=== PATIENT | female | born 1950 | race Caucasian/White ===

== ENCOUNTER 2018-12-02 08:03 | Day surgery (SDC) | payer MEDICARE ==
[~2018-12-02 08:03] MED LIST: LACTATED RINGERS 1,000 ML IV SCH; LIDOCAINE 1% 20 ML VIAL (10MG/ML) FOR IV START INTRADERMA PRN
[2018-12-02 08:32] VITALS: TEMP 97.8
[2018-12-02] MEDS ORDERED: PROPOFOL 10 MG/ML 20 ML VIAL IV ONE (09:21)
--- NOTE | 2018-12-02 09:24 | P.GSHP ---
History of Present Illness H&P Date: 12/02/18 Chief Complaint: Screening colonoscopy This is a 68-year-old female who presents today for screening colonoscopy. Patient denies a significant GI complaints. Past Medical History Past Medical History: Cancer, COPD, Osteoarthritis (OA), Thyroid Disorder Additional Past Medical History / Comment(s): BLADDER CANCER, cellulitis jay lower legs 3 months ago History of Any Multi-Drug Resistant Organisms: None Reported Past Surgical History: Cholecystectomy, Hysterectomy, Orthopedic Surgery Additional Past Surgical History / Comment(s): RIGHT SHOULDER, RIGHT FOREARM SURGERY, RIGHT CARPAL TUNNEL, RIGHT TOTAL HIP, LEFT TOTAL HIP, BLADDER BIOSPY Past Anesthesia/Blood Transfusion Reactions: No Reported Reaction Past Psychological History: Depression Smoking Status: Current every day smoker Past Alcohol Use History: Rare Additional Past Alcohol Use History / Comment(s): STARTED SMOKING AT AGE 12 SMOKES 1/2PPD Past Drug Use History: None Reported - Past Family History Sister(s) Family Medical History: Cancer Medications and Allergies Home Medications Medication Instructions Recorded Confirmed Type DULoxetine HCL [Cymbalta] 60 mg PO DAILY 11/28/18 11/28/18 History Estrogens, Conjugated [Premarin] 0.625 mg PO DAILY 11/28/18 11/28/18 History Lansoprazole [Prevacid] 30 mg PO DAILY 11/28/18 11/28/18 History Levothyroxine Sodium [Synthroid] 137 mcg PO DAILY 11/28/18 11/28/18 History Oxybutynin Chloride [Ditropan] 5 mg PO TID 11/28/18 11/28/18 History Venlafaxine HCl [Effexor XR] 75 mg PO BID 11/28/18 11/28/18 History Symbicort,Unknow Dose 2 puff INHALATION BID 12/02/18 History Allergies Allergy/AdvReac Type Severity Reaction Status Date / Time Iodinated Contrast- Oral and Allergy Rash/Hives Verified 11/28/18 15:55 IV Dye Penicillins Allergy Rash/Hives Verified 11/28/18 15:55 Surgical - Exam Vital Signs Temp Pulse Resp BP Pulse Ox 97.8 F 68 16 172/77 92 L 12/02/18 08:30 12/02/18 08:30 12/02/18 08:30 12/02/18 08:30 12/02/18 08:30 - General well developed, well nourished, no distress - Eyes PERRL - ENT normal pinna - Neck no masses - Respiratory normal expansion - Cardiovascular Rhythm: regular - Abdomen Abdomen: soft, non tender Assessment and Plan Assessment: We'll perform screening colonoscopy
--- NOTE | 2018-12-02 09:42 | P.OP ---
Date of Procedure: 12/02/18 Preoperative Diagnosis: Screening colonoscopy Postoperative Diagnosis: Rectal polyp External hemorrhoids Procedure(s) Performed: Colonoscopy Anesthesia: MAC Surgeon: Nils Mistry Pathology: other (Rectal polyp) Condition: stable Disposition: PACU Description of Procedure: The patient's placed on the endoscopy table in the lateral position. She received IV sedation. Digital rectal exam was performed which revealed external hemorrhoids. Flexible colonoscope was then placed patient anus passed throughout the entire colon. The ileocecal valve was visualized. The cecum, ascending and transverse colon appeared normal. The descending and sigmoid colon appeared normal. The scope was then brought back the rectum and there appeared to be a small polyp. This was removed with the cold forcep. The scope was withdrawn for patient.
[2018-12-02 10:13] VITALS: BP 165/56; PULSE 78; RESP 18
== END 2018-12-02 10:17 | disposition home or self-care (01) ==
LOC: ORWHC2ENDO 08:03
PROVIDERS: ATTEND Surgery
DX: Z12.11 Encounter for screening for malignant neoplasm of colon (principal); K62.1 Rectal polyp; K64.4 Residual hemorrhoidal skin tags; J44.9 Chronic obstructive pulmonary disease, unspecified; M19.90 Unspecified osteoarthritis, unspecified site; E07.9 Disorder of thyroid, unspecified; F17.210 Nicotine dependence, cigarettes, uncomplicated; F32.9 Major depressive disorder, single episode, unspecified; Z85.51 Personal history of malignant neoplasm of bladder; Z88.0 Allergy status to penicillin; Z79.890 Hormone replacement therapy; Z79.899 Other long term (current) drug therapy; Z91.041 Radiographic dye allergy status; Z96.643 Presence of artificial hip joint, bilateral
CPT/HCPCS: 88305; 45380; J2704

== ENCOUNTER → 2018-12-30 | Outpatient (CLI) | payer MEDICARE ==
--- NOTE | 2019-01-01 09:31 | P.ARTDOP ---
Arterial Doppler Upper extremity arterial Doppler Date of study: 12/30/2018 Reason for study: Paresthesias Doppler waveforms are multiphasic bilaterally throughout. There are no significant right to left or segmental pressure gradients. Impression: Grossly normal upper extremity arterial Doppler. Symptoms unlikely to be vascular.
== END | disposition home or self-care (01) ==
LOC: RADUSWWP 14:11
PROVIDERS: ATTEND Family Medicine
DX: R20.2 Paresthesia of skin (principal)
CPT/HCPCS: 93923

== ENCOUNTER 2022-11-25 21:01 | Inpatient (IN) | payer MEDICARE ==
[2022-11-26] MEDS ORDERED: HEPARIN SODIUM 1,000 UN/ML (10ML VL) IV PRN (04:39)
[2022-11-26] MEDS ORDERED: HEPARIN SODIUM 1,000 UN/ML (10ML VL) IV ONE (04:39)
[2022-11-26] MEDS: HEPARIN SOD,PORK IN 0.45% NACL 25,000 UNIT in 0.45% NACL 1 250ML.BAG IV SCH ×2 (05:23→18:09)
[2022-11-26] MEDS ORDERED: IBUPROFEN 200 MG TAB PO PRN (06:00)
[2022-11-26 06:06] LABS: Basophils % (A) 0 %; Eosinophils % (A) 0 %; HCT 40.3 % (34.0-46.0); HGB 12.6 gm/dL (11.4-16.0); Lymphocytes # (A) 0.6 k/uL (1.0-4.8); Lymphocytes % (A) 5 %; MCH 29.6 pg (25.0-35.0); MCHC 31.1 g/dL (31.0-37.0); MCV 95.2 fL (80.0-100.0); Mean Platelet Volume 9.2; Monocytes # (A) 0.5 k/uL (0-1.0); Monocytes % (A) 5 %; Neutrophils # (A) 9.4 k/uL (1.3-7.7); Neutrophils % (A) 89 %; Platelet Count 238 k/uL (150-450); RBC 4.24 m/uL (3.80-5.40); RDW 13.4 % (11.5-15.5); WBC 10.6 k/uL (3.8-10.6)
[2022-11-26 06:12] LABS: Partial Thromboplastin Time 25.8 sec (22.0-30.0); Prothrombin Time 10.4 sec (9.0-12.0)
[2022-11-26] MEDS: LEVOTHYROXINE 137 MCG TAB PO SCH (07:40)
[2022-11-26] MEDS: PANTOPRAZOLE 40 MG TABLET PO SCH (08:07)
[2022-11-26] MEDS: ESTROGENS, CONJUGATED 0.625 MG TAB PO SCH (08:07)
[2022-11-26] MEDS: OXYBUTYNIN CHLORIDE 5 MG TAB PO SCH ×3 (08:07→20:49)
[2022-11-26] MEDS: lisinopriL 10 MG TAB PO SCH (08:07)
[2022-11-26] MEDS ORDERED: FORMOTEROL INHALATION SCH (09:00)
[2022-11-26] MEDS ORDERED: BUDESONIDE INHALATION SCH (09:00)
[2022-11-26] MEDS ORDERED: NON FORMULARY DRUG (Citalopram Hydrobromide [Citalopram Hbr] 40 MG Tablet) PO SCH (09:00)
[2022-11-26] MEDS: CITALOPRAM HYDROBROMIDE 20 MG TAB PO SCH (09:59)
--- NOTE | 2022-11-26 11:31 | P.GSCN ---
History of Present Illness Consult date: 11/26/22 History of present illness: The patient is a 72-year-old female who was transferred in from an outside hospital for increasing shortness of breath. She has found to have a pulmonary embolism worse on the right and on the left at the outside hospital. They di dn't have means of echocardiogram or intervention therefore she was transferred here. She states that she's had significant immobility recently, she initially had back surgery on her neck 4-5 years ago, subsequently she had wounds and required antibiotic therapy the IV. She recently underwent a muscle flap transfer on the neck to cover the bone and hardware about 8-9 weeks ago. She states during that time she was relatively immobile and just recently was cleared to go back to activity. She was doing laundry and utilizing a detergent usually makes her breathing somewhat worsened as she artery has evidence of COPD. She tried utilizing an inhaler that usually resolve the issue however this did not help and she found she was hypoxic with an elevated heart rate at home therefore she presented to the outside ER. She initially was treated as a COPD exacerbation and subsequent CT angiogram of the chest was performed again reportedly showing evidence of pulmonary emboli. At this point here she is feeling better. She feels her breathing is improved. She denies any fevers, chills, nausea or vomiting. She denies any significant swelling in her legs that is unchanged from previous. Past Medical History Past Medical History: Cancer, COPD, Osteoarthritis (OA), Thyroid Disorder Additional Past Medical History / Comment(s): BLADDER CANCER, cellulitis jay lower legs History of Any Multi-Drug Resistant Organisms: None Reported Past Surgical History: Cholecystectomy, Hysterectomy, Orthopedic Surgery Additional Past Surgical History / Comment(s): RIGHT SHOULDER, RIGHT FOREARM SURGERY, RIGHT CARPAL TUNNEL, RIGHT TOTAL HIP, LEFT TOTAL HIP, BLADDER BIOSPY, Cervical spine surgery 2018 Past Anesthesia/Blood Transfusion Reactions: Previous Problems w/ Anesthesia Additional Past Anesthesia/Blood Transfusion Reaction / Comm: States last three surgeries with anesthesia, O2 drops once in recovery and has to stay in hospital for days. Smoking Status: Former smoker - Past Family History Sister(s) Family Medical History: Cancer Medications and Allergies Home Medications Medication Instructions Recorded Confirmed Type Estrogens, Conjugated [Premarin] 0.625 mg PO DAILY 11/28/18 11/26/22 History Lansoprazole [Prevacid] 30 mg PO DAILY 11/28/18 11/26/22 History Levothyroxine Sodium [Synthroid] 137 mcg PO DAILY 11/28/18 11/26/22 History Budesonide/Formoterol Fumarate 2 puff INHALATION RT-BID 11/26/22 11/26/22 History [Symbicort 160-4.5 Mcg Inhaler] Citalopram Hydrobromide 40 mg PO DAILY 11/26/22 11/26/22 History [Citalopram HBr] Ibuprofen [Motrin] 600 mg PO TID PRN 11/26/22 11/26/22 History Ipratropium/Albuter 20-100Mcg 1 puff INHALATION RT-QID PRN 11/26/22 11/26/22 History [Combivent Respimat 20-100Mcg Inhaler] Oxybutynin Xl [Ditropan XL] 5 mg PO TID 11/26/22 11/26/22 History lisinopriL [Zestril] 10 mg PO DAILY 11/26/22 11/26/22 History Allergies Allergy/AdvReac Type Severity Reaction Status Date / Time Iodinated Contrast Media Allergy Rash on Verified 11/26/22 11:01 [Iodinated Contrast- Oral stomach and IV Dye] Penicillins Allergy Rash/Hives Verified 11/26/22 11:01 Surgical - Exam Vital Signs Temp Pulse Resp BP Pulse Ox 97.8 F 63 20 187/86 94 L 11/26/22 03:30 11/26/22 03:30 11/26/22 03:30 11/26/22 03:30 11/26/22 03:30 Patient is a pleasant female in mild respiratory distress wearing oxygen. Heart appears mildly tachycardic otherwise regular. Lungs are diminished but clear. Abdomen is soft. Obese, nontender nondistended. Extremities with mild edema. Normal range of motion. Results Labs at this hospital are reviewed. Reports from outside hospital are reviewed. We will try to upload computed tomography scan to our PAC system. - Labs 11/26/22 05:12 Abnormal Lab Results - Last 24 Hours (Table) 11/26/22 Range/Units 05:12 Neutrophils # 9.4 H (1.3-7.7) k/uL Lymphocytes # 0.6 L (1.0-4.8) k/uL Assessment and Plan Assessment: Reported pulmonary emboli with evidence of right heart strain on CT Recent immobility COPD Lower extremity swelling Plan: We will try to obtain the visualization of the computed tomography scan. Patient is to be getting an echocardiogram to fully evaluate for right heart strain. She does have evidence of pulmonary disease but no reported history of pulmonary hypertension on previous echocardiograms. She currently is stable on 2-3 L of oxygen. We discussed the indications of submassive PE with right heart strain and outcomes versus heparinization alone. Risks and benefits of thrombolytic therapy were discussed. We discussed that we will wait to see what the echocardiogram shows that there is intact evidence of right heart strain will proceed with TPA thrombolysis. The patient seemingly understands the plan and is willing to proceed. We'll also check a venous duplex bilaterally.
[2022-11-26] MEDS: ACETAMINOPHEN TAB 325 MG TAB PO PRN ×2 (11:40→16:42)
[2022-11-26] MEDS: IPRATROPIUM-ALBUTEROL 3 ML NEB INHALATION PRN ×2 (16:16→20:08)
--- NOTE | 2022-11-26 17:03 | US ---
EXAMINATION TYPE: US venous doppler duplex LE BI DATE OF EXAM: 11/26/2022 2:18 PM COMPARISON: NONE CLINICAL HISTORY: PE. Pe SIDE PERFORMED: Bilateral TECHNIQUE: The lower extremity deep venous system is examined utilizing real time linear array sonog salbador with graded compression, doppler sonography and color-flow sonography. VESSELS IMAGED: Common Femoral Vein Deep Femoral Vein Greater Saphenous Vein * Femoral Vein Popliteal Vein Small Saphenous Vein * Proximal Calf Veins (* superficial vessels) Right Leg: Positive for DVT Popliteal Vein. Left Leg: Positive for DVT Popliteal Vein. IMPRESSION: No evidence of deep vein thrombosis in both legs.
[2022-11-26] MEDS: SYMBICORT 160-4.5 MCG INHALER INHALATION SCH (20:08)
--- NOTE | 2022-11-26 23:02 | P.HPIM ---
History of Present Illness H&P Date: 11/26/22 Chief Complaint: Shortness of breath Patient is a 72-year-old female with known history of COPD, osteoarthritis, history of bladder cancer, prior history of smoking and recent history of neck skin flap surgery about 9 weeks ago initially presented to [facility] with complaints of cough and shortness of breath initially started on Sunday. Following night she was still having shortness of breath and getting worse. She measured her pulse ox and found to be 60% with heart rate of 105. Patient went to ER. She was found to have elevated D-dimer level and CT angiogram of the chest showed large main right pulmonary artery thromboembolism and left upper lobe subsegmental pulmonary embolism. Patient was transferred to [facility] for vascular surgery evaluation. Patient currently denies any complaints of chest pain. On oxygen at 2 L via nasal cannula. No fever no chills. No worsening cough or sputum production. Patient also noticed some increasing leg swelling but denies any pain. Patient has been sitting in the chair most of the time since surgery. Laboratory showed WBC 10.6 hemoglobin 12.6 and platelets 238 Patient is being current on heparin drip Review of Systems Constitutional: Patient denies any fever or chills . No generalized weakness or weight loss. Abdomen: Patient denied nausea vomiting and diarrhea and abdominal pain. Cardiovascular: Patient denies any chest pain or short of breath no palpitations. Respiratory: patient denied any cough is from production. Complaining of shortness of breath Neurologic: Patient denied any numbness or tingling headache. Musculoskeletal: Patient denies any complaints of joint swelling or deformity. Skin: Negative Psychiatric: Negative Endocrine: No heat or cold intolerance. No recent weight gain. Genitourinary: No dysuria or hematuria. All other 14 point ROS negative except the above Past Medical History Past Medical History: Cancer, COPD, Osteoarthritis (OA), Thyroid Disorder Additional Past Medical History / Comment(s): BLADDER CANCER, cellulitis jay lower legs History of Any Multi-Drug Resistant Organisms: None Reported Past Surgical History: Cholecystectomy, Hysterectomy, Orthopedic Surgery Additional Past Surgical History / Comment(s): RIGHT SHOULDER, RIGHT FOREARM SURGERY, RIGHT CARPAL TUNNEL, RIGHT TOTAL HIP, LEFT TOTAL HIP, BLADDER BIOSPY, Cervical spine surgery 2018 Past Anesthesia/Blood Transfusion Reactions: Previous Problems w/ Anesthesia Additional Past Anesthesia/Blood Transfusion Reaction / Comment(s): States last three surgeries with anesthesia, O2 drops once in recovery and has to stay in hospital for days. Smoking Status: Former smoker - Past Family History Sister(s) Family Medical History: Cancer Medications and Allergies Home Medications Medication Instructions Recorded Confirmed Type Estrogens, Conjugated [Premarin] 0.625 mg PO DAILY 11/28/18 11/26/22 History Lansoprazole [Prevacid] 30 mg PO DAILY 11/28/18 11/26/22 History Levothyroxine Sodium [Synthroid] 137 mcg PO DAILY 11/28/18 11/26/22 History Budesonide/Formoterol Fumarate 2 puff INHALATION RT-BID 11/26/22 11/26/22 History [Symbicort 160-4.5 Mcg Inhaler] Citalopram Hydrobromide 40 mg PO DAILY 11/26/22 11/26/22 History [Citalopram HBr] Ibuprofen [Motrin] 600 mg PO TID PRN 11/26/22 11/26/22 History Ipratropium/Albuter 20-100Mcg 1 puff INHALATION RT-QID PRN 11/26/22 11/26/22 History [Combivent Respimat 20-100Mcg Inhaler] Oxybutynin Xl [Ditropan XL] 5 mg PO TID 11/26/22 11/26/22 History lisinopriL [Zestril] 10 mg PO DAILY 11/26/22 11/26/22 History Allergies Allergy/AdvReac Type Severity Reaction Status Date / Time Iodinated Contrast Media Allergy Rash on Verified 11/26/22 11:01 [Iodinated Contrast- Oral stomach and IV Dye] Penicillins Allergy Rash/Hives Verified 11/26/22 11:01 Physical Exam Vitals: Vital Signs Temp Pulse Resp BP Pulse Ox 11/26/22 13:00 18 11/26/22 11:20 97.7 F 61 18 180/84 95 11/26/22 08:01 97.8 F 62 18 171/82 94 L 11/26/22 04:00 97.9 F 67 18 192/85 94 L 11/26/22 03:30 97.8 F 63 20 187/86 94 L Intake and Output 11/26/22 11/26/22 11/26/22 06:59 14:59 22:59 Intake Total 19.727 664.99 0 Balance 19.727 664.99 0 Intake: IV 20 Invasive Line 1 20 Intake, IV Titration 19.727 138.99 0 Amount Heparin Sod,Pork in 0.45% 19.727 138.99 0 NaCl 25,000 unit In 0.45 % NaCl 1 250ml.bag @ 18 UNITS/KG/HR 17.406 mls/hr IV .[id number] JB Rx#: [id number] Oral 506 Other: Voiding Method Toilet # Voids 2 1 Weight 96.7 kg PHYSICAL EXAMINATION: Patient is lying in the bed comfortably, no acute distress, awake alert and oriented.. HEENT: Normocephalic. Neck is supple. Pupils reactive. Nostrils clear. Oral cavity is moist. Neck reveals no JVD, carotid bruits, or thyromegaly. CHEST EXAMINATION: Trachea is central. Symmetrical expansion. Lung oliveros clear to auscultation and percussion. CARDIAC: Normal S1, S2 with no gallops. No murmurs ABDOMEN: Soft. Bowel sounds normal. No organomegaly. No abdominal bruits. Extremities: reveal no edema. No clubbing or cyanosis Neurologically awake, alert, oriented x3 with well-coordinated movements. No focal deficits noted Skin: No rash or skin lesions. Psychiatric: Coperative. Nonsuicidal Musculoskeletal: No joint swelling or deformity. Normal range of motion. Results CBC & Chem 7: 11/27/22 03:19 11/27/22 03:19 Labs: Abnormal Lab Results - Last 24 Hours (Table) 11/26/22 11/26/22 Range/Units 05:12 11:48 Neutrophils # 9.4 H (1.3-7.7) k/uL Lymphocytes # 0.6 L (1.0-4.8) k/uL APTT >200.0 H* (22.0-30.0) sec Thrombosis Risk Factor Assmnt - DVT/VTE Prophylaxis DVT/VTE Prophylaxis: Pharmacologic Prophylaxis ordered - Choose All That Apply Any of the Below Risk Factors Present?: Yes Each Factor Represents 1 point: Abnormal pulmonary function (COPD), Obesity (BMI >25) Other Risk Factors: Yes Each Risk Factor Represents 3 Points: History of DVT/PE Other congenital or acquired thrombophilia - If yes, enter type in comment: No Thrombosis Risk Factor Assessment Total Risk Factor Score: 5 Thrombosis Risk Factor Assessment Level: High Risk Assessment and Plan Assessment: Acute large right main pulmonary artery embolus and left upper subsegmental PE. Likely provoked due to recent immobilization after surgery. Acute hypoxic respiratory failure and tachycardia secondary to above. History of neck muscle flap surgery about 9 weeks ago. COPD Osteoarthritis Hypothyroidism History of bladder cancer Prior history of smoking Plan: Patient will be continued on heparin drip. Continue telemetry monitoring. 2D echocardiogram was ordered for any possible right ventricular strain. Vascular surgery is on board. Considering thrombolytic therapy if there is any evidence of right ventricular strain. Bilateral artery duplex scan was ordered. Continue with oxygen supplementation and duo nebs inhalation. Follow-up closely. Discussed with patient and her at bedside in detail. Prognosis is guarded at this time. Time with Patient: Greater than 30
[2022-11-27 03:43] LABS: Basophils % (A) 0 %; Eosinophils # (A) 0.2 k/uL (0-0.7); Eosinophils % (A) 3 %; HCT 41.3 % (34.0-46.0); HGB 12.7 gm/dL (11.4-16.0); Lymphocytes % (A) 27 %; MCH 29.6 pg (25.0-35.0); MCHC 30.8 g/dL (31.0-37.0); MCV 96.1 fL (80.0-100.0); Mean Platelet Volume 9.3; Monocytes # (A) 0.7 k/uL (0-1.0); Monocytes % (A) 9 %; Neutrophils # (A) 4.5 k/uL (1.3-7.7); Neutrophils % (A) 59 %; Platelet Count 211 k/uL (150-450); RDW 13.7 % (11.5-15.5); WBC 7.6 k/uL (3.8-10.6)
[2022-11-27 04:00] LABS: Calcium 8.7 mg/dL (8.4-10.2); Potassium 4.8 mmol/L (3.5-5.1)
[2022-11-27] MEDS: LEVOTHYROXINE 137 MCG TAB PO SCH (06:10)
[2022-11-27] MEDS: SYMBICORT 160-4.5 MCG INHALER INHALATION SCH ×2 (07:07→19:24)
[2022-11-27] MEDS: PANTOPRAZOLE 40 MG TABLET PO SCH (08:34)
[2022-11-27] MEDS: OXYBUTYNIN CHLORIDE 5 MG TAB PO SCH ×3 (08:34→20:47)
[2022-11-27] MEDS: ACETAMINOPHEN TAB 325 MG TAB PO PRN (08:34)
[2022-11-27] MEDS: CITALOPRAM HYDROBROMIDE 20 MG TAB PO SCH (08:34)
[2022-11-27] MEDS: lisinopriL 10 MG TAB PO SCH (08:35)
[2022-11-27] MEDS: ESTROGENS, CONJUGATED 0.625 MG TAB PO SCH (08:35)
[2022-11-27] MEDS: HEPARIN SOD,PORK IN 0.45% NACL 25,000 UNIT in 0.45% NACL 1 250ML.BAG IV SCH (08:38)
--- NOTE | 2022-11-27 10:11 | P.PN ---
Subjective Progress Note Date: 11/27/22 Principal diagnosis: Bilateral pulmonary emboli Patient was seen and examined today as a follow-up. Lying down on the couch discomfort. She states she is doing much better. She is not requiring any oxygen. She's not feeling short of breath, denies any chest pain. She did have a venous duplex of the lower extremities that reported bilateral lower extremity popliteal DVTs. Patient is awaiting echocardiogram. Echocardiogram was performed there is no evidence of any right heart strain. Objective - Vital Signs Vital signs: Vital Signs Temp 97.5 F L 11/27/22 08:26 Pulse 58 L 11/27/22 08:26 Resp 18 11/27/22 08:26 BP 106/61 11/27/22 08:26 Pulse Ox 91 L 11/27/22 08:26 FiO2 21 11/27/22 07:08 Intake & Output 11/26/22 11/27/22 11/27/22 18:59 06:59 18:59 Intake Total 825.635 681.810 474.055 Balance 825.635 681.810 474.055 Intake: IV 20 Invasive Line 1 20 Intake, IV Titration 181.635 141.810 54.055 Amount Heparin Sod,Pork in 0.45% 181.635 141.810 54.055 NaCl 25,000 unit In 0.45 % NaCl 1 250ml.bag @ 18 UNITS/KG/HR 17.406 mls/hr IV .[id number] JB Rx#: [id number] Oral [phone] Other: Voiding Method Toilet Toilet Toilet # Voids 1 2 - Exam General appearance: The patient is alert, oriented, appears in no acute distress. HET: Head is normocephalic and atraumatic. Neck: Supple. Heart: Regular. Lungs: Equal expansion, normal respiratory effort, bilateral wheezes. Abdomen: Soft, nontender, nondistended. Extremities: Normal skin color and turgor. Bilateral lower extremity swelling. Neurological: No focal deficits. - Labs CBC & Chem 7: 11/27/22 03:19 11/27/22 03:19 Labs: Abnormal Lab Results - Last 24 Hours (Table) 11/26/22 11/26/22 11/27/22 Range/Units 11:48 20:32 03:19 MCHC 30.8 L (31.0-37.0) g/dL APTT >200.0 H* 96.7 H (22.0-30.0) sec Carbon Dioxide (22-30) mmol/L BUN (7-17) mg/dL Creatinine (0.52-1.04) mg/dL Glucose (74-99) mg/dL 11/27/22 11/27/22 Range/Units 03:19 03:19 MCHC (31.0-37.0) g/dL APTT 83.7 H (22.0-30.0) sec Carbon Dioxide 32 H (22-30) mmol/L BUN 44 H (7-17) mg/dL Creatinine 1.07 H (0.52-1.04) mg/dL Glucose 102 H (74-99) mg/dL Assessment and Plan Assessment: 1. Bilateral pulmonary emboli without evidence of right heart strain 2. Bilateral lower extremity DVTs 3. Recent immobility 4. COPD 5. Lower extremity swelling Plan: 1. Echocardiogram reviewed, no evidence of right heart strain 2. Patient may transition to oral anticoagulation of her choice 3. No indication for any vascular surgical intervention Thank you for this consultation. We will sign off at this time. The impression and plan of care has been dictated as directed. Dr. Mcpherson I performed a history and examination of this patient, discussed the same with the dictator. I agree with the dictator's note ,documented as a scribe. Any additional findings or plans will be noted.
[2022-11-27] MEDS: IPRATROPIUM-ALBUTEROL 3 ML NEB INHALATION PRN ×3 (10:55→19:24)
--- NOTE | 2022-11-27 11:27 | CA ---
Transthoracic Echo Report Name: Anne Kimball Age: 72 Gender: F : 1950 Exam Date: 11/27/2022 10:05 Exam Location: [facility] Ht (in): 62 Wt (lb): 213 Ordering Physician: Andres Meyers MD Attending/Referring Phys: Hoister NS Procedure CPT: Indications: Multiple PEs Cardiac Hx: Technical Quality: Fair Contrast 1: Total Dose (mL): Contrast 2: Total Dose (mL): MEASUREMENTS (Male / Female) Normal Values 2D ECHO LV Diastolic Diameter PLAX 4.3 cm 4.2 - 5.9 / 3.9 - 5.3 cm LV Systolic Diameter PLAX 3.1 cm IVS Diastolic Thickness 1.6 cm 0.6 - 1.0 / 0.6 - 0.9 cm LVPW Diastolic Thickness 1.6 cm 0.6 - 1.0 / 0.6 - 0.9 cm LV Relative Wall Thickness 0.8 LV Diastolic Volume MOD 4C 57.8 cm??? LV Systolic Volume MOD 4C 26.4 cm??? LV Ejection Fraction MOD 4C 54.3 % LV Cardiac Index MOD 4C 1161.3 cm???/min???m??? LV Diastolic Length 4C 6.5 cm LV Systolic Length 4C 5.4 cm M-MODE Aortic Root Diameter MM 2.6 cm LA Systolic Diameter MM 5.0 cm LA Ao Ratio MM 1.9 AV Cusp Separation MM 1.9 cm DOPPLER AV Peak Velocity 143.6 cm/s AV Peak Gradient 8.2 mmHg LVOT Peak Velocity 111.2 cm/s LVOT Peak Gradient 4.9 mmHg MV Area PHT 4.2 cm??? MR Peak Velocity 536.9 cm/s MR Peak Gradient 115.3 mmHg Mitral E Point Velocity 62.6 cm/s Mitral A Point Velocity 99.3 cm/s Mitral E to A Ratio 0.6 MV Deceleration Time 181.7 ms TR Peak Velocity 224.9 cm/s TR Peak Gradient 20.2 mmHg FINDINGS Left Ventricle Normal left ventricular systolic function with no obvious regional wall motion abnormalities. Moderately increased left ventricular wall thickness. Left ventricular cavity size normal. Left ventricular ejection fraction is estimated at 55-60 %. Right Ventricle Normal right ventricular size and function. Right ventricular systolic pressure within normal limits. No right heart strain noted. TAPSE 22 mm Right Atrium Normal right atrial size. Left Atrium Normal left atrial size. Mitral Valve Structurally normal mitral valve. Mild mitral regurgitation. Aortic Valve Trileaflet aortic valve. No aortic valve stenosis or regurgitation. Tricuspid Valve Structurally normal tricuspid valve. Mild tricuspid regurgitation. Pulmonic Valve Trace pulmonic regurgitation. Pericardium No pericardial effusion. Aorta Normal size aortic root and proximal ascending aorta. CONCLUSIONS Normal left ventricular size wall motion systolic function No evidence of RV strain Previewed by: Dr. Boni Sánchez MD (Electronically Signed) Final Date: 27 November 2022 11:26
--- NOTE | 2022-11-27 14:55 | P.PN ---
Subjective Progress Note Date: 11/27/22 Patient is a 72-year-old female with known history of COPD, osteoarthritis, history of bladder cancer, prior history of smoking and recent history of neck skin flap surgery about 9 weeks ago initially presented to [facility] with complaints of cough and shortness of breath initially started on Sunday. Following night she was still having shortness of breath and getting worse. She measured her pulse ox and found to be 60% with heart rate of 105. Patient went to ER. She was found to have elevated D-dimer level and CT angiogram of the chest showed large main right pulmonary artery thromboembolism and left upper lobe subsegmental pulmonary embolism. Patient was transferred to [facility] for vascular surgery evaluation. Patient currently denies any complaints of chest pain. On oxygen at 2 L via nasal cannula. No fever no chills. No worsening cough or sputum production. Patient also noticed some increasing leg swelling but denies any pain. Patient has been sitting in the chair most of the time since surgery. Laboratory showed WBC 10.6 hemoglobin 12.6 and platelets 238 Patient is being current on heparin drip 11/27/2022 Patient seen and evaluated in follow-up currently up and walking to the bathroom and back. Patient receiving breathing treatments with history of COPD. Patient being followed by vascular surgery as well waiting on echo that was ordered as patient was noted to have an elevated d-dimer with a large main right pulmonary artery thromboembolism and left upper lobe subsegmental pulmonary embolism. Patient had venous Dopplers done showing positive bilateral popliteal vein DVTs as well. Patient is afebrile denies chest pain or palpitations. Case management following will submit oral anticoagulation to verify pricing. Review of systems: Constitutional: No reports of fatigue, fever, or chills Cardiovascular: No reports of chest pain or palpitations Respiratory: No reports of worsening shortness of breath, reports chronic cough GI: No reports of nausea, vomiting, or diarrhea : No reports of dysuria or retention Neurovascular: No reports of weakness or numbness All medications have been reviewed Active Medications Acetaminophen (Acetaminophen Tab 325 Mg Tab) 650 mg PO Q6HR PRN PRN Reason: Fever and/ or Pain Last Admin: 11/27/22 08:34 Dose: 650 mg Albuterol/Ipratropium (Ipratropium-Albuterol 3 Ml Neb) 3 ml INHALATION RT-QID PRN PRN Reason: Shortness Of Breath Or Wheezing Last Admin: 11/27/22 10:55 Dose: 3 ml Budesonide/Formoterol Fumarate (Symbicort 160-4.5 Mcg Inhaler) 2 puff INHALATION RT-BID [facility] Last Admin: 11/27/22 07:07 Dose: 2 puff Citalopram Hydrobromide (Citalopram Hydrobromide 20 Mg Tab) 40 mg PO DAILY [facility] Last Admin: 11/27/22 08:34 Dose: 40 mg Estrogens Conjugated (Estrogens, Conjugated 0.625 Mg Tab) 0.625 mg PO DAILY [facility] Last Admin: 11/27/22 08:35 Dose: 0.625 mg Heparin Sodium (Porcine) (Heparin Sodium 1,000 Un/Ml (10ml Vl)) 0 unit IV PER PROTOCOL PRN; Protocol PRN Reason: Low PTT Last Admin: 11/26/22 06:34 Dose: 7,736 unit Heparin Sodium/Sodium Chloride (25,000 unit/ Sodium Chloride) 250 mls @ 17.406 mls/hr IV .[id number] [facility]; Protocol Last Titration: 11/27/22 11:48 Dose: 11 units/kg/hr, 10.637 mls/hr Ibuprofen (Ibuprofen 200 Mg Tab) 200 mg PO QID PRN PRN Reason: Headache Levothyroxine Sodium (Levothyroxine 137 Mcg Tab) 137 mcg PO DAILY@0630 [facility] Last Admin: 11/27/22 06:10 Dose: 137 mcg Lisinopril (Lisinopril 10 Mg Tab) 10 mg PO DAILY [facility] Last Admin: 11/27/22 08:35 Dose: 10 mg Oxybutynin Chloride (Oxybutynin Chloride 5 Mg Tab) 5 mg PO TID [facility] Last Admin: 11/27/22 08:34 Dose: 5 mg Pantoprazole Sodium (Pantoprazole 40 Mg Tablet) 40 mg PO DAILY [facility] Last Admin: 11/27/22 08:34 Dose: 40 mg Physical exam: Patient is sitting up at the side of the bed, no acute distress, awake alert and oriented.. Obese HEENT: Normocephalic. Neck is supple. Pupils reactive. Nostrils clear. Oral cavity is moist. Neck reveals no JVD, carotid bruits, or thyromegaly. CHEST EXAMINATION: Trachea is central. Symmetrical expansion. Lung oliveros clear to auscultation and percussion. CARDIAC: Normal S1, S2 with no gallops. No murmurs ABDOMEN: Soft. Bowel sounds normal. No organomegaly. No abdominal bruits. Extremities: reveal no edema. No clubbing or cyanosis Neurologically awake, alert, oriented x3 with well-coordinated movements. No focal deficits noted Skin: No rash or skin lesions. Psychiatric: Cooperative. Non-suicidal Musculoskeletal: No joint swelling or deformity. Normal range of motion. Assessment: Acute large right main pulmonary artery embolus and left upper subsegmental PE. Likely provoked due to recent immobilization after surgery. No evidence of right heart strain on echo Acute hypoxic respiratory failure and tachycardia secondary to above. History of neck muscle flap surgery about 9 weeks ago. COPD, not in exacerbation Osteoarthritis Hypothyroidism History of bladder cancer Prior history of smoking Plan: Patient will be continued on heparin drip and vascular surgery following patient had 2-D echo done which showed normal LV systolic function with no obvious regional wall motion abnormalities moderately increased left ventricular wall thickness an EF estimated of 55-60% with some mild mitral regurgitation present. No evidence of right heart strain noted. Will send to the pharmacy [facility] to verify coverage in case management notified. Continue telemetry monitoring. Bilateral lower extremity Dopplers ordered showing positive for DVT of the left and right popliteal vein Continue with oxygen supplementation and duo nebs inhalation. Wean FiO2 as tolerated. We'll continue DuoNeb's and will obtain nebulizer to manage her COPD Awaiting to verify coverage of oral anticoagulation with possible discharge in 24 hours Prognosis is guarded. The impression and plan of care has been dictated by Daisha Barton, Nurse Practitioner as directed. MD Silva I have performed a history and examination and MDM of this patient, discussed the same with the dictator, and agree with the dictator's assessment and plan as written ,documented as a scribe. Based on total visit time, I have performed more than 50% of the visit. Objective - Vital Signs Vital signs: Vital Signs Temp 97.5 F L 11/27/22 08:26 Pulse 58 L 11/27/22 08:26 Resp 18 11/27/22 08:26 BP 106/61 11/27/22 08:26 Pulse Ox 91 L 11/27/22 08:26 FiO2 21 11/27/22 07:08 Intake & Output 11/26/22 11/27/22 11/27/22 18:59 06:59 18:59 Intake Total 825.635 681.810 474.055 Balance 825.635 681.810 474.055 Intake: IV 20 Invasive Line 1 20 Intake, IV Titration 181.635 141.810 54.055 Amount Heparin Sod,Pork in 0.45% 181.635 141.810 54.055 NaCl 25,000 unit In 0.45 % NaCl 1 250ml.bag @ 18 UNITS/KG/HR 17.406 mls/hr IV .[id number] [facility] Rx#: [id number] Oral [phone] Other: Voiding Method Toilet Toilet Toilet # Voids 1 2 - Labs CBC & Chem 7: 11/27/22 03:19 11/27/22 03:19 Labs: Abnormal Lab Results - Last 24 Hours (Table) 11/26/22 11/26/22 11/27/22 Range/Units 11:48 20:32 03:19 MCHC 30.8 L (31.0-37.0) g/dL APTT >200.0 H* 96.7 H (22.0-30.0) sec Carbon Dioxide (22-30) mmol/L BUN (7-17) mg/dL Creatinine (0.52-1.04) mg/dL Glucose (74-99) mg/dL 11/27/22 11/27/22 Range/Units 03:19 03:19 MCHC (31.0-37.0) g/dL APTT 83.7 H (22.0-30.0) sec Carbon Dioxide 32 H (22-30) mmol/L BUN 44 H (7-17) mg/dL Creatinine 1.07 H (0.52-1.04) mg/dL Glucose 102 H (74-99) mg/dL
[2022-11-28] MEDS: LEVOTHYROXINE 137 MCG TAB PO SCH (06:08)
[2022-11-28 06:42] VITALS: RESP 19
[2022-11-28] MEDS: SYMBICORT 160-4.5 MCG INHALER INHALATION SCH (07:49)
[2022-11-28] MEDS: HEPARIN SOD,PORK IN 0.45% NACL 25,000 UNIT in 0.45% NACL 1 250ML.BAG IV SCH (08:59)
[2022-11-28] MEDS ORDERED: APIXABAN 5 MG TAB PO SCH (09:00)
[2022-11-28] MEDS: CITALOPRAM HYDROBROMIDE 20 MG TAB PO SCH (09:07)
[2022-11-28] MEDS: lisinopriL 10 MG TAB PO SCH (09:08)
[2022-11-28] MEDS: PANTOPRAZOLE 40 MG TABLET PO SCH (09:08)
[2022-11-28] MEDS: OXYBUTYNIN CHLORIDE 5 MG TAB PO SCH ×2 (09:08→16:06)
[2022-11-28] MEDS: ESTROGENS, CONJUGATED 0.625 MG TAB PO SCH (09:08)
[2022-11-28] MEDS: IPRATROPIUM-ALBUTEROL 3 ML NEB INHALATION PRN ×2 (11:20→15:27)
[2022-11-28 11:54] VITALS: BP 146/72; TEMP 97.6
[2022-11-28 15:41] VITALS: PULSE 68
--- NOTE | 2022-11-28 20:24 | P.DS ---
Providers Date of admission: 11/26/22 02:49 Expected date of discharge: 11/28/22 Attending physician: Kimberly Fabian Consults: 11/26/22 04:35 Consult Physician Routine Consulting Provider: Jill Vaughn Consult Reason/Comments: Multiple BL PEs Do you want consulting provider notified?: Yes, Notify in am Primary care physician: Chinyere Vizcaino Hospital Course: Final diagnosis Acute large right main pulmonary artery embolus and left upper subsegmental PE. Likely provoked due to recent immobilization after surgery. No evidence of right heart strain on echo Acute hypoxic respiratory failure and tachycardia secondary to above. History of neck muscle flap surgery about 9 weeks ago. COPD, not in exacerbation Osteoarthritis Hypothyroidism History of bladder cancer Prior history of smoking Discharge disposition Patient is being discharged in a stable condition with guarded prognosis to home . Patient will follow-up with Dr. Vizcaino in the outpatient setting upon discharge. Patient is to follow-up with pulmonary outpatient as scheduled. Patient will continue on DuoNeb treatments along with inhalers and has been started on Eliquis. Total time taken is greater than 35 minutes. Hospital course This is a 72-year-old female who was recently admitted with shortness of breath found to have pulmonary emboli as well as DVTs and started on IV heparin. Patie nt also with COPD history. Patient was continued on DuoNeb treatments and transitioned to oral eliquis per vascular surgery recommendations as echo showed no evidence of heart strain will continue 10 mg twice daily for the next week and then transitioned down to 5 mg twice daily thereafter. Patient has been cleared by consultations for discharge. Patient also with continued cough will add Mucinex and instructed the patient to a follow-up with primary care provider. Currently no reports of chest pain, shortness of breath, or palpitations. Patient is afebrile. No reports of nausea or vomiting and patient is tolerating diet. Patient will be discharged home today. Guarded prognosis Physical exam: Gen: This is a 72-year-old female who is awake, alert and oriented 3, well- developed, well-nourished, obese HEENT: Head is atraumatic, normocephalic. Pupils equal, round. Sclerae is anicteric. NECK: Supple. No JVD. No lymphadenopathy. No thyromegaly. LUNGS: Diminished breath sounds bilaterally with some coarse rhonchi. Bronchospasms on exam area did No intercostal retractions. HEART: Regular rate and rhythm. No murmur. ABDOMEN: Soft. Bowel sounds are present. No masses. No tenderness. EXTREMITIES: No pedal edema. No calf tenderness. NEUROLOGICAL: Patient is awake, alert and oriented x3. Cranial nerves 2 through 12 are grossly intact. Please refer to medication reconciliation sheet for a list of medications. The impression and plan of care has been dictated by Daisha Barton, Nurse Practitioner as directed. Dr. Rui MD I have performed a history and examination and MDM of this patient, discussed the same with the dictator, and agree with the dictator's assessment and plan as written ,documented as a scribe. Based on total visit time, I have performed more than 50% of the visit. Patient Condition at Discharge: Fair Plan - Discharge Summary Discharge Rx Participant: Yes New Discharge Prescriptions: New Apixaban [Eliquis Starter Pack (for VTE)] 5 - 10 mg PO DIRECTED 30 Days #1 each Ipratropium-Albuterol Nebulize [Duoneb 0.5 mg-3 mg/3 ml Soln] 3 ml INHALATION RT-QID 30 Days #120 each guaiFENesin [Mucinex] 600 mg PO Q12H 10 Days #20 tab Continue Levothyroxine Sodium [Synthroid] 137 mcg PO DAILY Estrogens, Conjugated [Premarin] 0.625 mg PO DAILY Lansoprazole [Prevacid] 30 mg PO DAILY lisinopriL [Zestril] 10 mg PO DAILY Citalopram Hydrobromide [Citalopram HBr] 40 mg PO DAILY Oxybutynin Xl [Ditropan XL] 5 mg PO TID Ibuprofen [Motrin] 600 mg PO TID PRN PRN Reason: Pain Budesonide/Formoterol Fumarate [Symbicort 160-4.5 Mcg Inhaler] 2 puff INHALATION RT-BID Ipratropium/Albuter 20-100Mcg [Combivent Respimat 20-100Mcg Inhaler] 1 puff INHALATION RT-QID PRN PRN Reason: Shortness Of Breath Discharge Medication List Estrogens, Conjugated [Premarin] 0.625 mg PO DAILY 11/28/18 [History] Lansoprazole [Prevacid] 30 mg PO DAILY 11/28/18 [History] Levothyroxine Sodium [Synthroid] 137 mcg PO DAILY 11/28/18 [History] Budesonide/Formoterol Fumarate [Symbicort 160-4.5 Mcg Inhaler] 2 puff INHALATION RT-BID 11/26/22 [History] Citalopram Hydrobromide [Citalopram HBr] 40 mg PO DAILY 11/26/22 [History] Ibuprofen [Motrin] 600 mg PO TID PRN 11/26/22 [History] Ipratropium/Albuter 20-100Mcg [Combivent Respimat 20-100Mcg Inhaler] 1 puff INHALATION RT-QID PRN 11/26/22 [History] Oxybutynin Xl [Ditropan XL] 5 mg PO TID 11/26/22 [History] lisinopriL [Zestril] 10 mg PO DAILY 11/26/22 [History] Apixaban [Eliquis Starter Pack (for VTE)] 5 - 10 mg PO DIRECTED 30 Days #1 each 11/27/22 [Rx] Ipratropium-Albuterol Nebulize [Duoneb 0.5 mg-3 mg/3 ml Soln] 3 ml INHALATION RT-QID 30 Days #120 each 11/28/22 [Rx] guaiFENesin [Mucinex] 600 mg PO Q12H 10 Days #20 tab 11/28/22 [Rx] Follow up Appointment(s)/Referral(s): Jill Vaughn DO [STAFF PHYSICIAN] - 12/20/22 8:45 am Chinyere Vizcaino DO [Primary Care Provider] - 12/04/22 11:20 am Rebeca Lara MD [STAFF PHYSICIAN] - 12/13/22 1:15 pm (Dr. Reeves ) Patient Instructions/Handouts: Pulmonary Edema (DC), COPD (Chronic Obstructive Pulmonary Disease) (DC) Activity/Diet/Wound Care/Special Instructions: Activity Limited until follow-up Follow-up with primary care provider on discharge Follow-up vascular surgery outpatient Recommend follow-up with pulmonary for further testing and management of COPD Continue Eliquis 10 mg twice daily for the next 6 days and then titrate down to 5 mg twice daily thereafter Continue Mucinex twice daily Continue taking medications as prescribed Discharge Disposition: HOME SELF-CARE
== END 2022-11-28 16:34 | disposition home or self-care (01) | DRG 175 ==
LOC: 3SCARD 11-26 02:49
PROVIDERS: ADMIT Internal Medicine; ATTEND Internal Medicine
DX: I26.99 Other pulmonary embolism without acute cor pulmonale (principal); J96.01 Acute respiratory failure with hypoxia; I82.433 Acute embolism and thrombosis of popliteal vein, bilateral; I26.93 Single subsegmental thrombotic pulmonary embolism without acute cor pulmonale; J44.9 Chronic obstructive pulmonary disease, unspecified; E03.9 Hypothyroidism, unspecified; R00.0 Tachycardia, unspecified; M19.90 Unspecified osteoarthritis, unspecified site; Z96.643 Presence of artificial hip joint, bilateral; E66.9 Obesity, unspecified; Z68.39 Body mass index [BMI] 39.0-39.9, adult; Z87.891 Personal history of nicotine dependence; Z85.51 Personal history of malignant neoplasm of bladder; Z79.899 Other long term (current) drug therapy; Z79.890 Hormone replacement therapy; Z79.51 Long term (current) use of inhaled steroids; Z88.0 Allergy status to penicillin; Z91.041 Radiographic dye allergy status
CPT/HCPCS: 80048; 85025; 85610; 85730; 93306; 93970; 94640; 94760